=== PATIENT | female | born 1965 | race Caucasian/White ===

== ENCOUNTER 2017-08-27 12:21 | Emergency (ER) | payer BC ==
[~2017-08-27] VITALS: Ht 170.2 cm; Wt 112.6 kg
[~2017-08-27 12:21] MED LIST: ALPR-429 PO; CALC500T5 PO; IMAT400T2 PO; IMAT400T5 PO; LOR75 PO; MULT1TAB64 PO; ONDA-2 PO; OXYC-865 PO; OXYC10TA67 PO; OXYC5TAB38 PO; OXYIR PO; SULF-198 PO; TAMS0.4C70 PO
--- NOTE | 2017-08-27 12:31 | ER Report ---
History and Physical Time Seen By MD: 12:30 Hx. of Stated Complaint: LEFT KNEE LACERATION HPI/ROS CHIEF COMPLAINT: Left knee injury HISTORY OF PRESENT ILLNESS: This is a 51-year-old female who presents to the emergency department for a left knee injury. Patient states that she stepped off a sidewalk at her house and slipped landing on her left knee on a rock injuring her left knee. Patient has a large laceration and open wound to the left knee. Bleeding is controlled. No obvious deformities. Patient has some pain to the lateral knee and proximal tibia. Patient also has some bruising to the anterior surface of the right lower leg, no obvious deformities. Patient also has some discomfort to her ribs underneath her left breast, no chest pain or shortness of breath and no pinpoint pain with firm pressure. Patient states she thinks that she just reached when she was trying to break her fall and stretch the muscle underneath her left breast. Patient also states that she has some pain to her left palm where she broke her fall, no obvious deformities or lacerations or abrasions. Patient denies hitting her head. Patient denies nausea , vomiting, diarrhea, aches, chills or recent fevers. REVIEW OF SYSTEMS: Constitutional: No fever, no chills. Eyes: No discharge. ENT: No sore throat. Cardiovascular: No chest pain, no palpitations. Respiratory: No cough, no shortness of breath. Gastrointestinal: No abdominal pain, no vomiting. Genitourinary: No hematuria. Musculoskeletal: As above. Skin: As above. Neurological: No headache. Allergies: Coded Allergies: Penicillins (Verified Allergy, Unknown, 08/27/17) Home Meds Active Scripts Cephalexin 500 Mg Tab (KEFLEX 500 MG TAB) 500 Mg Tablet, 500 MG PO Q6H for 7 Days, #28 TAB Prov:PERLITA MARTINEZ YARN DUMPER-BC 08/27/17 Alprazolam (XANAX) 0.5 Mg Tablet, 1 TAB PO TID Y for ANXIETY, #30 TAB Prov:EDITH CAMPOS YARN DUMPER-BC, ONC 04/19/17 Imatinib Mesylate (Imatinib Mesylate) 400 Mg Tablet, 400 MG PO DAILY, #90 TAB Prov:EDITH CAMPOS YARN DUMPER-BC, ONC 07/21/16 Reported Medications Multivitamin (MULTI VITAMIN DAILY) 1 Each Tablet, 1 EACH PO QDAY 10/11/12 Discontinued Scripts Tamsulosin Hcl (TAMSULOSIN HCL) 0.4 Mg Cap.er.24h, 0.4 MG PO QHS for 3 Days, #3 CAP 0 Refills Prov:LEA ENRIQUEZ MD 05/12/17 Ondansetron Hcl (ONDANSETRON HCL) 4 Mg Tablet, 4 MG PO Q8H for Nausea, #15 TAB 0 Refills Prov:LEA ENRIQUEZ MD 05/12/17 Past Medical/Surgical History Patient has a past medical and surgical history of A. fib, wears glasses, anxiety, leukemia, left ankle fracture with surgery. Reviewed Nurses Notes: Yes Hx Smoking: No Smoking Status: Never Smoker Exposure to Second Hand Smoke?: No Hx Substance Use Disorder: No Hx Alcohol Use: No Constitutional Vital Sign - Last 24 Hours 08/27/17 08/27/17 12:25 15:08 Temp 97.7 Pulse 74 73 Resp 16 B/P (MAP) 125/82 142/87 (105) Pulse Ox 96 94 O2 Delivery Room Air Room Air Physical Exam General Appearance: The patient is alert, has no immediate need for airway protection and no signs of toxicity, anxious. Eyes: Pupils equal and round no pallor or injection. ENT, Mouth: Mucous membranes are moist. Respiratory: There are no retractions, lungs are clear to auscultation. Cardiovascular: Regular rate and rhythm, no murmurs, clicks or rubs. Gastrointestinal: Abdomen is soft and non tender, no masses, bowel sounds normal. Neurological: Alert and oriented 4. Moving all extremities. Following all commands. No focal neuro deficits. Skin: Warm and dry, no rashes. Musculoskeletal: Neck is supple non tender. Denies C-spine tenderness. Extremities 6 cm jagged, 90deg. laceration, with visible bony structures noted, no visible damage to underlying structures. No visible tendon damage. Flexion of knee against gravity. Contusion to the left lateral knee. Contusion to right anterior lower extremity. Contusion to left palm. Examination of the Left hand reveals no acute deformity. The patient is able to give a thumbs up sign, is able to make an okay sign, and is able to AB duct the fingers. Sensation is intact over the dorsal 1st web space, the volar aspect of the 2nd finger, and the volar aspect of the 5th finger. Capillary refill is brisk. DIFFERENTIAL DIAGNOSIS: After history and physical exam differential diagnosis was considered for patellar fracture, patellar tendon rupture, tibial plateau fracture, contusion, laceration. Medical Decision Making EKG/Imaging Imaging PATIENT NAME: Tori Avina : 1965 MR: [id number] V: [id number] EXAM DATE: ORDERING PHYSICIAN: PERLITA MARTINEZ TECHNOLOGIST: Location: [facility] - [place] Patient: Tori Avina : 1965 Visit/Account:[id number] Date of Sevice: 08/27/2017 INDICATION: fall, knee pain. DATE: 08/27/2017 1:40 PM. TECHNIQUE: KNEE 4 VIEW LEFT COMPARISON: None FINDINGS: A laceration in the prepatellar region is large. There may be some debris within the wound. No underlying osseous abnormality. Patellar alignment remains normal. No knee joint effusion. IMPRESSION: Prepatellar laceration with possible debris in the wound but no radiographic evidence of intra-articular extension and no acute osseous abnormality. Report Dictated By: Deepak Rodrigues MD at 08/27/2017 1:40 PM Report E-Signed By: Deepak Rodrigues MD at 08/27/2017 1:41 PM WSN:[id number] ED Course/Re-evaluation ED Course The patient was admitted to room. A history and physical were obtained. Differential diagnoses were considered. A 4 view x-ray of the left knee was obtained, which revealed no acute osseous abnormalities. The patient's wound was anesthetized with 1% lidocaine with epinephrine and 0.5% bupivacaine. I did review these x-ray results with the patient and her . The wound was thoroughly cleansed and scrubbed with 1 L of normal saline and sure cleanse. The complex wound was repaired as noted below. The patient's wound was dressed with a nonadhesive dressing and then secured with an Matt wrap. The patient's tetanus was updated. Given 1 g of Rocephin IM in the emergency department. Patient was also started on a course of Keflex. The patient was instructed to follow-up with her primary care provider in 10-14 days for suture removal. She was also encouraged to follow up with her primary care provider sooner if she were to develop signs of infection or return to the emergency department for any other concerns or worsening symptoms. Patient had no other questions or concerns and was discharged home. Procedure: Laceration repair. Verbal consent was obtained from the patient. The jagged, 90 degree 6 cm laceration on the right knee was anesthetized in the usual fashion. The wound was scrubbed, draped and explored to its base with a gloved finger, no foreign body noted by bloodless wound base examination. There were no deep structures involved. No tendon injury was identified. The wound was repaired with 3-5-0 Vicryl internal simple interrupted sutures and 15, 5-0 Ethilon external simple interrupted sutures. The wound repair was complex and bilayered. The procedure was performed by myself. Decision to Disposition Date: Aug 27, 2017 Decision to Disposition Time: 15:14 Depart Departure Latest Vital Signs Vital Signs Date Time Temp Pulse Resp B/P (MAP) Pulse Ox O2 Delivery O2 Flow Rate FiO2 08/27/17 15:08 73 142/87 (105) 94 Room Air 08/27/17 12:25 97.7 16 Impression: Primary Impression: Laceration of knee, left, complicated Additional Impression: Contusion Condition: Improved Disposition: HOME OR SELF-CARE Referrals: SHEBA NICOLE MD New Scripts Cephalexin 500 Mg Tab (KEFLEX 500 MG TAB) 500 Mg Tablet 500 MG PO Q6H for 7 Days, #28 TAB Prov: PERLITA MARTINEZ L YARN DUMPER-BC 08/27/17 Departure Forms: ER Transition Record, Medications Reconciliation, Patient Portal Information Patient Instructions: Contusion in Adults (ED), Laceration (ED) Additional Instructions: Drink plenty of fluids. Get plenty of rest. Take Ibuprofen or Tylenol as needed for pain. Take antibiotics as indicated. Take regular medications. Monitor knee for signs of infection. Follow up with Dr. Nicole in 10-14 days for suture removal. May return to the ED for worsening symptoms. Problem Qualifiers Primary Impression: Laceration of knee, left, complicated Encounter type: initial encounter Qualified Codes: S81.012A - Laceration without foreign body, left knee, initial encounter Additional Impression: Contusion Encounter type: initial encounter Contusion area: knee Laterality: left Qualified Codes: S80.02XA - Contusion of left knee, initial encounter PERLITA MARTINEZ YARN DUMPER-BC Aug 27, 2017 12:30
[2017-08-27] MEDS ORDERED: LIDOCAINE 1% MDV 200 MG/20 ML INJ ONE (12:55)
[2017-08-27] MEDS ORDERED: cefTRIAXone 1 GM VIAL IM ONE (12:55)
[2017-08-27] MEDS ORDERED: DIPHTH/TETANUS/ACEL. PERTUSSIS IM ONLY ONE (13:00)
--- NOTE | 2017-08-27 13:45 | RADIOLOGY IMAGING REPORT ---
FACILITY: [facility] - [place] PATIENT NAME: Tori Avina : 1965 MR: [id number] V: [id number] EXAM DATE: ORDERING PHYSICIAN: PERLITA MARTINEZ TECHNOLOGIST: Location: [facility] - [place] Patient: Tori Avina : 1965 Visit/Account:[id number] Date of Sevice: 08/27/2017 INDICATION: fall, knee pain. DATE: 08/27/2017 1:40 PM. TECHNIQUE: KNEE 4 VIEW LEFT COMPARISON: None FINDINGS: A laceration in the prepatellar region is large. There may be some debris within the wound. No underlying osseous abnormality. Patellar alignment remains normal. No knee joint effusion. IMPRESSION: Prepatellar laceration with possible debris in the wound but no radiographic evidence of intra-articu lar extension and no acute osseous abnormality. Report Dictated By: Deepak Rodrigues MD at 08/27/2017 1:40 PM Report E-Signed By: Deepak Rodrigues MD at 08/27/2017 1:41 PM WSN:[id number]
[2017-08-27 15:08] VITALS: BP 142/87
[2017-08-27] MEDS ORDERED: CEPH500T7 PO (15:19)
== END 2017-08-27 15:35 | disposition home or self-care (01) ==
LOC: ER 12:41
DX: S81.012A Laceration without foreign body, left knee, initial encounter (principal); S80.02XA Contusion of left knee, initial encounter; W01.0XXA Fall on same level from slipping, tripping and stumbling without subsequent striking against object, initial encounter
CPT/HCPCS: 12032; 73564; 90471; 90715; 96372; 99283; J0696; J2001

== ENCOUNTER 2017-08-31 09:28 | Emergency (ER) | payer BC ==
[~2017-08-31] VITALS: Ht 170.2 cm; Wt 112.6 kg
[~2017-08-31 09:28] MED LIST changes: +CEPH500T7 PO
--- NOTE | 2017-08-31 09:33 | ER Report ---
History and Physical Time Seen By MD: 09:33 HPI/ROS CHIEF COMPLAINT: Right left-sided chest pain and "bubbling" HISTORY OF PRESENT ILLNESS: Patient is a 51-year-old female who fell a few days ago was seen in the emergency department on August 27 for left knee laceration repair which appears to be healing well. She states last evening she was having severe left-sided chest wall pain. Further she noted some bubbling sounds coming from just below the left lower rib margin. Patient became anxious but did not come to the emergency department at the onset. Pain is improved but she still feels the discomfort in that area. He is had no further falls she denies fevers or chills she denies any productive cough or sputum. REVIEW OF SYSTEMS: Constitutional: No fever, no chills. Eyes: No discharge. ENT: No sore throat. Cardiovascular: No chest pain, occasional palpitations Respiratory: No cough, no shortness of breath. Gastrointestinal: No abdominal pain, no vomiting. Genitourinary: No hematuria. Musculoskeletal: No back pain. Left anterior chest wall pain Skin: No rashes. Neurological: No headache. Allergies: Coded Allergies: Penicillins (Verified Allergy, Unknown, 08/27/17) Home Meds Active Scripts Hydrocodone Bit/Acetaminophen (HYDROCODON-ACETAMINOPHEN 5-325) 1 Each Tablet, 1 EACH PO Q4-6H Y for PAIN, #12 TAB 0 Refills TAKE ONE TABLET BY MOUTH EVERY 4-6 HOURS NEEDED FOR PAIN Prov:LEA ENRIQUEZ MD 08/31/17 Cephalexin 500 Mg Tab (KEFLEX 500 MG TAB) 500 Mg Tablet, 500 MG PO Q6H for 7 Days, #28 TAB Prov:PERLITA MARTINEZ DAYCARE MANAGER-BC 08/27/17 Alprazolam (XANAX) 0.5 Mg Tablet, 1 TAB PO TID Y for ANXIETY, #30 TAB Prov:EDITH CAMPOS DAYCARE MANAGER-BC, ONC 04/19/17 Imatinib Mesylate (Imatinib Mesylate) 400 Mg Tablet, 400 MG PO DAILY, #90 TAB Prov:EDITH CAMPOS DAYCARE MANAGER-BC, ONC 07/21/16 Reported Medications Multivitamin (MULTI VITAMIN DAILY) 1 Each Tablet, 1 EACH PO QDAY 10/11/12 Discontinued Scripts Tamsulosin Hcl (TAMSULOSIN HCL) 0.4 Mg Cap.er.24h, 0.4 MG PO QHS for 3 Days, #3 CAP 0 Refills Prov:LEA ENRIQUEZ MD 05/12/17 Ondansetron Hcl (ONDANSETRON HCL) 4 Mg Tablet, 4 MG PO Q8H for Nausea, #15 TAB 0 Refills Prov:LEA ENRIQUEZ MD 05/12/17 Past Medical/Surgical History Medical history significant for chronic myelogenous leukemia diagnosed in 2009 currently on chemotherapy Hx Smoking: No Smoking Status: Never Smoker Exposure to Second Hand Smoke?: No Hx Substance Use Disorder: No Hx Alcohol Use: No Constitutional Vital Sign - Last 24 Hours 08/31/17 08/31/17 08/31/17 08/31/17 09:31 09:31 10:00 10:30 Temp 98.3 Pulse 90 82 Resp 18 B/P (MAP) 120/65 (83) 120/65 125/82 (96) 127/68 (87) Pulse Ox 91 94 O2 Delivery Room Air 08/31/17 10:58 B/P (MAP) 132/85 (101) Physical Exam General Appearance: The patient is alert, has no immediate need for airway protection and no signs of toxicity. Eyes: Pupils equal and round no pallor or injection. ENT, Mouth: Mucous membranes are moist. Respiratory: There are no retractions, lungs are clear to auscultation. Cardiovascular: Regular rate and rhythm. Gastrointestinal: Abdomen is soft and non tender, no masses, bowel sounds normal. Neurological: Alert, nontoxic Skin: Warm and dry, no rashes. Musculoskeletal: Neck is supple non tender. Extremities are nontender, nonswollen and have full range of motion. Medical Decision Making EKG/Imaging EKG Interpretation EKG shows normal sinus rhythm with ventricular rate of 83 bpm occasional PVCs Monitor Interpretation: Normal Sinus Rhythm Imaging FACILITY: [facility] - [place] PATIENT NAME: Tori Avina : 1965 MR: [id number] V: [id number] EXAM DATE: ORDERING PHYSICIAN: LEA ENRIQUEZ TECHNOLOGIST: Location: [facility] Patient: Tori Avina : 1965 Visit/Account:[id number] Date of Sevice: 08/31/2017 Exam type: RIBS LEFT two views History: Fall on ice Comparison: Chest PA and lateral October 19, 2016 Findings: No definite left-sided rib fracture is seen. There is mild blunting of the left costophrenic angle not present on the prior study worrisome for small left pleural effusion. There is also a band of atelectasis in the left lower lobe new since the prior examination. IMPRESSION: 1. No definite left-sided rib fracture identified. There is mild blunting left costophrenic angle worrisome for small left pleural effusion and small amount left basilar atelectasis Report Dictated By: Ese Mccurdy MD at 08/31/2017 10:17 AM Report E-Signed By: Ese Mccurdy MD at 08/31/2017 10:32 AM WSN:[email or web address] FACILITY: [facility] - [place] PATIENT NAME: Tori Avina : 1965 MR: [id number] V: [id number] EXAM DATE: ORDERING PHYSICIAN: LEA ENRIQUEZ TECHNOLOGIST: Location: [facility] Patient: Tori Avina : 1965 Visit/Account:[id number] Date of Sevice: 08/31/2017 Exam type: CHEST PA AND LAT History: Fall on ice Comparison: October 19, 2016. Findings: There is mild blunting left costophrenic angle not present on the prior study worrisome first small left pleural effusion. There is also linear band of atelectasis in the left lung base. There is no evidence of pneumothorax or pneumomediastinum. The right lung is well aerated.. IMPRESSION: 1. Small amount left basilar atelectasis and mild blunting left costophrenic angle worrisome for small left pleural effusion Report Dictated By: Ese Mccurdy MD at 08/31/2017 10:32 AM Report E-Signed By: Ese Mccurdy MD at 08/31/2017 10:34 AM WSN:[email or web address] ED Course/Re-evaluation ED Course 08/31/2017 9:51:02 am plan at this time will be to obtain an EKG and we will obtain left lateral rib x-rays. Suspect that the patient's bubbling sound that she heard is more likely field representative GI origin in that it is probably borborygmi. We will obtain x-ray and EKG as previously stated disposition pending studies. Decision to Disposition Date: Aug 31, 2017 Decision to Disposition Time: 10:49 Depart Departure Latest Vital Signs Vital Signs Date Time Temp Pulse Resp B/P (MAP) Pulse Ox O2 Delivery O2 Flow Rate FiO2 08/31/17 10:58 132/85 (101) 08/31/17 10:30 82 94 08/31/17 09:31 98.3 18 Room Air Impression: Primary Impression: Left pulmonary contusion Condition: Improved Disposition: HOME OR SELF-CARE New Scripts Hydrocodone Bit/Acetaminophen (HYDROCODON-ACETAMINOPHEN 5-325) 1 Each Tablet 1 EACH PO Q4-6H Y for PAIN, #12 TAB 0 Refills TAKE ONE TABLET BY MOUTH EVERY 4-6 HOURS NEEDED FOR PAIN Prov: LEA ENRIQUEZ MD 08/31/17 Patient Instructions: Pulmonary Contusion (ED) Additional Instructions: Use her incentive spirometer as directed cold should be approximately 10 puffs 3 -4 times per day Problem Qualifiers Primary Impression: Left pulmonary contusion Encounter type: initial encounter Qualified Codes: S27.321A - Contusion of lung, unilateral, initial encounter LEA ENRIQUEZ MD Aug 31, 2017 09:33
[2017-08-31] MEDS ORDERED: NS(*) 0.9% 1000 ML BAG 1,000 ML IV ONE (09:40)
--- NOTE | 2017-08-31 09:50 | EKG ---
FACILITY: [facility] - [place] PATIENT NAME: SARINA STRATTON : [id number] MR: [id number] V: [id number] EXAM DATE: ORDERING PHYSICIAN: LEA ENRIQUEZ TECHNOLOGIST: MANNY Garcia Reason : CHEST DISCOMFORT Blood Pressure : / mmHG Vent. Rate : 083 BPM Atrial Rate : 083 BPM P-R Int : 172 ms QRS Dur : 114 ms QT Int : 416 ms P-R-T Axes : 062 050 100 degrees QTc Int : 488 ms Sinus rhythm with occasional premature ventricular complexes Cannot rule out Anterior infarct , age undetermined Incomplete left bundle branch block Abnormal ECG When compared with ECG of 19-OCT-2016 10:03, Questionable change in QRS axis Confirmed by SHEBA BOONE ([id number]) on 09/02/2017 8:53:34 AM Referred By: MINA Confirmed By:SHEBA BOONE
--- NOTE | 2017-08-31 10:36 | RADIOLOGY IMAGING REPORT ---
FACILITY: [facility] PATIENT NAME: Tori Avina : 1965 MR: [id number] V: [id number] EXAM DATE: ORDERING PHYSICIAN: LEA ENRIQUEZ TECHNOLOGIST: Location: [facility] [place] Patient: Tori Avina : 1965 Visit/Account:[id number] Date of Sevice: 08/31/2017 Exam type: RIBS LEFT two views History: Fall on ice Comparison: Chest PA and lateral October 19, 2016 Findings: No definite left-sided rib fracture is seen. There is mild blunting of the left costophrenic angle n ot present on the prior study worrisome for small left pleural effusion. There is also a band of ate lectasis in the left lower lobe new since the prior examination. IMPRESSION: 1. No definite left-sided rib fracture identified. There is mild blunting left costophrenic angle worrisome for small left pleural effusion and small am ount left basilar atelectasis Report Dictated By: Ese Mccurdy MD at 08/31/2017 10:17 AM Report E-Signed By: Ese Mccurdy MD at 08/31/2017 10:32 AM WSN:[id number]
--- NOTE | 2017-08-31 10:38 | RADIOLOGY IMAGING REPORT ---
FACILITY: [facility] PATIENT NAME: Tori Avina : 1965 MR: [id number] V: [id number] EXAM DATE: ORDERING PHYSICIAN: LEA ENRIQUEZ TECHNOLOGIST: Location: [facility] [place] Patient: Tori Avina : 1965 Visit/Account:[id number] Date of Sevice: 08/31/2017 Exam type: CHEST PA AND LAT History: Fall on ice Comparison: October 19, 2016. Findings: There is mild blunting left costophrenic angle not present on the prior study worrisome first small l eft pleural effusion. There is also linear band of atelectasis in the left lung base. There is no e vidence of pneumothorax or pneumomediastinum. The right lung is well aerated.. IMPRESSION: 1. Small amount left basilar atelectasis and mild blunting left costophrenic angle worrisome for sma ll left pleural effusion Report Dictated By: Ese Mccurdy MD at 08/31/2017 10:32 AM Report E-Signed By: Ese Mccurdy MD at 08/31/2017 10:34 AM WSN:[email or web address]
[2017-08-31] MEDS ORDERED: LOR5/325 PO (10:52)
[2017-08-31 10:58] VITALS: BP 132/85
== END 2017-08-31 11:05 | disposition home or self-care (01) ==
LOC: ER 09:28
DX: S27.321A Contusion of lung, unilateral, initial encounter (principal)
CPT/HCPCS: 71046; 71100; 93005; 99283

== ENCOUNTER 2017-10-18 13:57 | Outpatient (RCR) | payer BC ==
[2017-10-04 11:30] VITALS: BP 134/91
[2017-10-04 11:39] LABS: PLATELET COUNT, AUTOMATED 245 K/uL (150-450)
[~2017-10-18 13:57] MED LIST changes: +LOR5/325 PO
[2017-10-18 14:01] VITALS: BP 137/82
--- NOTE | 2017-10-18 18:47 | ONCOLOGY FOLLOW UP NOTE ---
EVENT DATE: October 18, 2017 DIAGNOSES 1. Chronic myelogenous leukemia on Gleevec therapy since November 2009. 2. Palpitation of the heart. CHIEF COMPLAINT The patient is here today for followup of her CML on Gleevec. HEMATOLOGY HISTORY The patient is a 51-year-old woman who presented with arthralgias of her hands. During her evaluation a CBC was done on October 07, 2009 which revealed a white count of 20,100, hemoglobin 13.6 and platelets of 691,000. There was basophilia with absolute basophil count of 1000. Flow cytometry showed left shifted myeloid maturation consistent with CML. BCR-ABL rearrangement by PCR was positive. JAK2 mutation analysis was negative. Bone marrow aspiration biopsy done on November 04, 2009 was consistent with CML. The patient started treatment with Gleevec November 2009. She achieved complete molecular remission by quantitative PCR for BCR-ABL transcript done on May 11, 2010. HISTORY OF PRESENT ILLNESS Patient is here today of followup of CML on Gleevec therapy in complete molecular remission. She is doing fine currently except she has some mild night sweats sometimes. She has also shortness of breath. She has occasional diarrhea. She has bone aches and she is weak, tired and fatigued. PAST MEDICAL HISTORY CML diagnosed November 2009. PAST SURGICAL HISTORY done in July 1993. SOCIAL HISTORY The patient is . She has three sons. She is a homemaker. No significant tobacco, alcohol or illicit drug abuse. FAMILY HISTORY Mother had uterine cancer at the age of seventy-four. Maternal grandmother with ovarian cancer at the age of seventy-four. Maternal aunt and maternal cousin with breast cancer. Paternal grandmother with skin cancer. CURRENT MEDICATIONS 1. Gleevec 400 mg daily. 2. Tylenol p.r.n. 3. Xanax 0.5 mg three times daily p.r.n. for anxiety. ALLERGIES PENICILLIN WHICH CAUSES SKIN RASH. REVIEW OF SYSTEMS CONSTITUTIONAL: No appetite or weight change. No fever, chills. She has mild night sweats. No recent infection. HEENT: Ears: No tinnitus or hearing problem. Nose: No nasal discharge or epistaxis. Throat: No sore throat or mouth ulcers. Eyes: No diplopia or visual changes. RESPIRATORY: The patient has exertional shortness of breath. CARDIOVASCULAR: She has palpitations. She was in the ER today. She had the palpitations two years ago, but it is recurrent currently. GASTROINTESTINAL: She has occasional diarrhea. No nausea or vomiting. No constipation. No change in bowel movements. No heartburn or swallowing difficulties. No abdominal pain. No jaundice. No hematemesis, melena or rectal bleeding. GENITOURINARY: No hematuria or dysuria. MUSCULOSKELETAL: She has bone aches. No pain in the hips and lower back. NEUROLOGICAL: She has tingling and numbness in the feet. HEMATOLOGIC/LYMPHATIC: She bruises easily. She is weak, tired and fatigued. SKIN: No skin rash or lumps. PSYCHIATRIC: No anxiety or depression. PHYSICAL EXAMINATION GENERAL: Looks stable. Well-developed, well-nourished, and in no acute distress. VITAL SIGNS: Blood pressure 137/82, pulse 79 per minute, respirations 16 per minute, temperature 97, pulse ox 92% on room air. HEENT: Head: Atraumatic. No sinus tenderness to palpation. Eyes: No icterus or conjunctivitis. Mouth and throat: No oral thrush or mucositis. NECK: Supple. No cervical or supraclavicular lymphadenopathy. LUNGS: Clear to auscultation and percussion bilaterally. HEART: Regular rate and rhythm. No gallops, murmurs, clicks or rubs. ABDOMEN: Soft and lax. No tenderness. No hepatosplenomegaly. No masses. EXTREMITIES: No cyanosis, clubbing or edema. LYMPHATICS: No peripheral lymphadenopathy. NEUROLOGICAL: Conscious, alert and oriented times three. No focal motor or sensory deficits. PSYCHIATRIC: Mood and affect appear normal. SKIN: No skin rash, bruise or purpuric eruption. DIAGNOSTIC DATA CBC showed white count 8.8, hemoglobin 14.1, hematocrit 41.4, platelets 245, 000. Chem panel is totally normal. Quantitative PCR for BCR/ABL transcript came back negative. ASSESSMENT 1. Chronic myelogenous leukemia in chronic phase, currently on Gleevec 400 mg started November 2009 with complete molecular remission achieved May 2010. Her current quantitative PCR for BCR/ABL transcript is not detected. I am planning to continue leaving it at the same dose. I will see her again in four months with CBC, chem panel, and quantitative PCR for BCR/ABL transcript. 2. Anxiety with palpitations. Continue Xanax 0.5 mg t.i.d. p.r.n. PLAN 1. Continue Gleevec 400 mg daily. 2. Xanax 0.5 mg t.i.d. p.r.n. for anxiety. 3. Patient to return in 4 months with CBC, chem panel and quantitative PCR for BCR/ABL. 4. Patient is to contact us for any new concern or complaints. MTDD
== END 2017-11-02 14:24 | disposition home or self-care (01) ==
LOC: ONC 13:57
PROVIDERS: ATTEND Internal Medicine Hematology
DX: C92.10 Chronic myeloid leukemia, BCR/ABL-positive, not having achieved remission (principal)
CPT/HCPCS: 36415; 81206; 81207; 82040; 82247; 82310; 82374; 82435; 82565; 82947; 84075; 84132; 84155; 84295; 84450; 84460; 84520; 85025

== ENCOUNTER 2018-02-21 13:53 | Outpatient (RCR) | payer BC ==
[2018-02-11 11:02] LABS: PLATELET COUNT, AUTOMATED 248 K/uL (150-450)
[2018-02-21 13:59] VITALS: BP 133/79
--- NOTE | 2018-02-21 19:37 | ONCOLOGY FOLLOW UP NOTE ---
EVENT DATE: February 21, 2018 DIAGNOSES 1. Chronic myelogenous leukemia on Gleevec therapy since November 2009. 2. Palpitation of the heart. CHIEF COMPLAINT The patient is here today for followup of her CML on Gleevec. HEMATOLOGY HISTORY The patient is a 52-year-old woman who presented with arthralgias of her hands. During her evaluation a CBC was done on October 07, 2009 which revealed a white count of 20,100, hemoglobin 13.6 and platelets of 691,000. There was basophilia with absolute basophil count of 1000. Flow cytometry showed left shifted myeloid maturation consistent with CML. BCR-ABL rearrangement by PCR was positive. JAK2 mutation analysis was negative. Bone marrow aspiration biopsy done on November 04, 2009 was consistent with CML. The patient started treatment with Gleevec November 2009. She achieved complete molecular remission by quantitative PCR for BCR-ABL transcript done on May 11, 2010. HISTORY OF PRESENT ILLNESS Patient is here today of followup of CML on Gleevec. She is doing fine currently. She has some dry cough and shortness of breath. She has some muscle pain. She has tingling and numbness in the feet occasionally. She is weak, tired and fatigued. PAST MEDICAL HISTORY CML diagnosed November 2009. PAST SURGICAL HISTORY done in July 1993. SOCIAL HISTORY The patient is . She has three sons. She is a homemaker. No significant tobacco, alcohol or illicit drug abuse. FAMILY HISTORY Mother had uterine cancer at the age of seventy-four. Maternal grandmother with ovarian cancer at the age of seventy-four. Maternal aunt and maternal cousin with breast cancer. Paternal grandmother with skin cancer. CURRENT MEDICATIONS 1. Gleevec 400 mg daily. 2. Tylenol p.r.n. 3. Xanax 0.5 mg three times daily p.r.n. for anxiety. ALLERGIES PENICILLIN WHICH CAUSES SKIN RASH. REVIEW OF SYSTEMS CONSTITUTIONAL: No appetite or weight change. No fever, chills. She has mild night sweats. No recent infection. HEENT: Ears: No tinnitus or hearing problem. Nose: No nasal discharge or epistaxis. Throat: No sore throat or mouth ulcers. Eyes: No diplopia or visual changes. RESPIRATORY: The patient has some cough and shortness of breath. CARDIOVASCULAR: She has palpitations. She was in the ER today. She had the palpitations two years ago, but it is recurrent currently. GASTROINTESTINAL: She has occasional diarrhea. No nausea or vomiting. No constipation. No change in bowel movements. No heartburn or swallowing difficulties. No abdominal pain. No jaundice. No hematemesis, melena or rectal bleeding. GENITOURINARY: No hematuria or dysuria. MUSCULOSKELETAL: She has occasional muscle pain. NEUROLOGICAL: She has occasional neuropathy in her feet. HEMATOLOGIC/LYMPHATIC: She is weak, tired and fatigued. SKIN: No skin rash or lumps. PSYCHIATRIC: No anxiety or depression. PHYSICAL EXAMINATION GENERAL: Looks stable. Well-developed, well-nourished, and in no acute distress. VITAL SIGNS: Blood pressure 133/79, pulse 82 per minute, respirations 18 per minute, temperature 98.4, pulse ox 93% on room air. HEENT: Head: Atraumatic. No sinus tenderness to palpation. Eyes: No icterus or conjunctivitis. Mouth and throat: No oral thrush or mucositis. NECK: Supple. No cervical or supraclavicular lymphadenopathy. LUNGS: Clear to auscultation and percussion bilaterally. HEART: Regular rate and rhythm. No gallops, murmurs, clicks or rubs. ABDOMEN: Soft and lax. No tenderness. No hepatosplenomegaly. No masses. EXTREMITIES: No cyanosis, clubbing or edema. LYMPHATICS: No peripheral lymphadenopathy. NEUROLOGICAL: Conscious, alert and oriented times three. No focal motor or sensory deficits. PSYCHIATRIC: Mood and affect appear normal. SKIN: No skin rash, bruise or purpuric eruption. DIAGNOSTIC DATA CBC showed white count 8.1, hemoglobin 14, hematocrit 41.4, platelets 248,000. Chem panel is totally normal except blood sugar 144 and potassium 3.4. Quantitative PCR for BCR/ABL rearrangement came back negative. ASSESSMENT 1. Chronic myelogenous leukemia in chronic phase, currently on Gleevec 400 mg started November 2009 with complete molecular remission achieved May 2010. Her current quantitative PCR for BCR/ABL transcript is negative. I am planning to continue Gleevec at the same dose. I will see her again in six months with CBC, chem panel, and quantitative PCR for BCR/ABL transcript. 2. Anxiety with palpitations. Continue Xanax 0.5 mg t.i.d. p.r.n. PLAN 1. Continue Gleevec 400 mg daily. 2. Continue Xanax 0.5 mg t.i.d. p.r.n. for anxiety. 3. Patient to return in six months with CBC, chem panel and quantitative PCR for BCR/ABL transcript. 4. Patient is to contact us for any new concern or complaints. MTDD
== END 2018-03-01 09:52 | disposition home or self-care (01) ==
LOC: ONC 13:53
PROVIDERS: ATTEND Internal Medicine Hematology
DX: C92.10 Chronic myeloid leukemia, BCR/ABL-positive, not having achieved remission (principal); R05 Cough; R06.02 Shortness of breath; R53.83 Other fatigue; F41.9 Anxiety disorder, unspecified
CPT/HCPCS: 36415; 81207; 82040; 82247; 82310; 82374; 82435; 82565; 82947; 84075; 84132; 84155; 84295; 84450; 84460; 84520; 85025; 99212

== ENCOUNTER 2018-08-09 13:47 | Outpatient (RCR) | payer BC | END 2018-08-12 13:28 | disposition home or self-care (01) | LOC: ONC 13:47 | PROVIDERS: ATTEND Internal Medicine Hematology | DX: C92.10 Chronic myeloid leukemia, BCR/ABL-positive, not having achieved remission (principal); R05 Cough; R06.02 Shortness of breath; R53.83 Other fatigue; F41.9 Anxiety disorder, unspecified ==

== ENCOUNTER 2018-08-29 15:30 | Outpatient (RCR) | payer BC ==
[2018-08-19 11:27] VITALS: BP 121/89
[2018-08-19 11:53] LABS: PLATELET COUNT, AUTOMATED 309 K/uL (150-450)
[2018-08-29 15:37] VITALS: BP 140/88
--- NOTE | 2018-08-29 20:18 | [facility] ONCOLOGY NOTE ---
EVENT DATE: August 29, 2018 DIAGNOSES 1. Chronic myelogenous leukemia, on Gleevec therapy since November 2009. 2. Palpitation of the heart. CHIEF COMPLAINT The patient is here today for followup of her CML on Gleevec. HEMATOLOGY HISTORY The patient is a 52-year-old woman who presented with arthralgias of her hands. During her evaluation, a CBC was done on October 07, 2009, which revealed a white count of 20,100, hemoglobin 13.6, and platelets of 691,000. There was basophilia with absolute basophil count of 1000. Flow cytometry showed left shifted myeloid maturation consistent with CML. BCR-ABL rearrangement by PCR was positive. JAK2 mutation analysis was negative. Bone marrow aspiration biopsy done on November 04, 2009, was consistent with CML. The patient started treatment with Gleevec November 2009. She achieved complete molecular remission by quantitative PCR for BCR-ABL transcript done on May 11, 2010. HISTORY OF PRESENT ILLNESS Patient is here today of followup of her CML on Gleevec. She is doing fine currently. She caught cold lately, but she is recovering from that. She has exertional shortness of breath. She has muscle aches sometimes. She has recent headache, usually on the right side of her head. She is weak, tired, and fatigued. PAST MEDICAL HISTORY CML diagnosed November 2009. PAST SURGICAL HISTORY done in July 1993. SOCIAL HISTORY The patient is . She has three sons. She is a homemaker. No significant tobacco, alcohol, or illicit drug abuse. FAMILY HISTORY Mother had uterine cancer at the age of 74. Maternal grandmother with ovarian cancer at the age of 74. Maternal aunt and maternal cousin with breast cancer. Paternal grandmother with skin cancer. CURRENT MEDICATIONS 1. Gleevec 400 mg daily. 2. Tylenol p.r.n. 3. Xanax 0.5 mg three times daily p.r.n. for anxiety. ALLERGIES PENICILLIN which causes skin rash. REVIEW OF SYSTEMS CONSTITUTIONAL: No appetite or weight change. No fever, chills, or sweating. No recent infection. HEENT: Ears: No tinnitus or hearing problem. Nose: No nasal discharge or epistaxis. Throat: No sore throat or mouth ulcers. Eyes: No diplopia or visual changes. RESPIRATORY: Patient has exertional shortness of breath. No cough, expectoration, or hemoptysis. CARDIOVASCULAR: No chest pain, orthopnea, or paroxysmal nocturnal dyspnea (PND). No edema. No palpitations. GASTROINTESTINAL: No nausea or vomiting. No diarrhea or constipation. No change in bowel movements. No heartburn or swallowing difficulties. No abdominal pain. No jaundice. No hematemesis, melena, or rectal bleeding. GENITOURINARY: No hematuria or dysuria. MUSCULOSKELETAL: She has muscle aches occasionally. NEUROLOGICAL: No tingling or numbness in the hands or feet. She has occasional headache lately. No convulsions. HEMATOLOGIC/LYMPHATIC: No bleeding or easy bruising. She is weak, tired, and fatigued. No enlarged lymph nodes. SKIN: No skin rash or lumps. PSYCHIATRIC: No anxiety or depression. PHYSICAL EXAMINATION GENERAL: Looks stable. Well developed, well nourished, and in no acute distress. VITAL SIGNS: Blood pressure 140/88, pulse 86 per minute, respirations 16 per minute, temperature 97.6, pulse ox 96% on room air. HEENT: Head: Atraumatic. No sinus tenderness to palpation. Eyes: No icterus or conjunctivitis. Mouth and throat: No oral thrush or mucositis. NECK: Supple. No cervical or supraclavicular lymphadenopathy. LUNGS: Clear to auscultation and percussion bilaterally. HEART: Regular rate and rhythm. No gallops, murmurs, clicks, or rubs. ABDOMEN: Soft and lax. No tenderness. No hepatosplenomegaly. No masses. EXTREMITIES: No cyanosis, clubbing, or edema. LYMPHATICS: No peripheral lymphadenopathy. NEUROLOGICAL: Conscious, alert, and oriented times three. No focal motor or sensory deficits. PSYCHIATRIC: Mood and affect appear normal. SKIN: No skin rash, bruise, or purpuric eruption. DIAGNOSTIC DATA CBC showed white count 7.9, hemoglobin 13.7, hematocrit 40.9, platelets 309,000. Chem panel totally normal except blood sugar 134. Quantitative PCR for BCR-ABL for transcript p190 and p210 all came back not detected. ASSESSMENT 1. Chronic myelogenous leukemia in chronic phase, on Gleevec 400 mg started November 2009 with complete molecular remission achieved May 2010. Her current quantitative PCR for BCR-ABL transcript is negative and not detected. I am planning to continue the same treatment with Gleevec 400 mg daily, and I see her again in six months with CBC, chem panel, and quantitative PCR for BCR-ABL transcript. 2. Anxiety. I am planning to continue Xanax 0.5 mg t.i.d. p.r.n. PLAN 1. Continue Gleevec 400 mg daily. 2. Continue Xanax 0.5 mg t.i.d. p.r.n. for anxiety. 3. Patient to return in six months with CBC, chem panel, and quantitative PCR for BCR-ABL transcript. 4. Patient is to contact us for any new concern or complaints. MTDD
== END 2018-09-09 08:13 | disposition home or self-care (01) ==
LOC: ONC 15:30
PROVIDERS: ATTEND Internal Medicine Hematology
DX: C92.10 Chronic myeloid leukemia, BCR/ABL-positive, not having achieved remission (principal); R05 Cough; R06.02 Shortness of breath; R53.83 Other fatigue; F41.9 Anxiety disorder, unspecified
CPT/HCPCS: 36415; 81206; 81207; 82040; 82247; 82310; 82374; 82435; 82565; 82947; 84075; 84132; 84155; 84295; 84450; 84460; 84520; 85025; 99212

== ENCOUNTER → 2018-10-14 | Outpatient (CLI) | payer BC ==
--- NOTE | 2018-10-14 16:02 | RADIOLOGY IMAGING REPORT ---
FACILITY: [facility] PATIENT NAME: Tori Avina : 1965 MR: [id number] V: [id number] EXAM DATE: [id number] ORDERING PHYSICIAN: Betty FLETCHER TECHNOLOGIST: Location: [facility] [place] Patient: Tori Avina : 1965 Visit/Account:[id number] Date of Sevice: 10/14/2018 EXAMINATION: MRI Brain without and with intravenous contrast, detailed IACs MRA neck without and with intravenous contrast HISTORY: Pulsatile tinnitus. Chronic myelogenous leukemia. Headache. Dizziness. COMPARISON: Brain MRI dated 11/18/2002. TECHNIQUE: Multi-planar, multi-sequence brain MRI was performed before and after IV gadolinium. Thin section edel ging was performed in the axial and coronal planes centered on the IACs. Sagittal T1, axial T1 with fat saturation, axial 3-D [id number], axial martir fisp, and coronal post contrast 3-D MRA of the neck. 3-D reformats were created from the source data. Stenosis of the internal controls manager al carotid arteries are calculated using NASCET criteria. CONTRAST: 15 mL of IV MultiHance FINDINGS: BRAIN/IAC: IAC detailed study: Brain stem: Negative. Cerebellopontine angles: Negative. IACs / CN VII and VIII: Negative. Inner ear: Negative. Middle ear: Negative. Mastoids / petrous apices: Negative. Rest of brain: Confluent T2 hyperintensity in the left frontoparietal subcortical white matter with m ultiple internal linear hypointensities and mild surrounding FLAIR hyperintensity. No abnormal enhanc ement. No mass effect. No hydrocephalus. NECK MRA: Angiographic Findings: Aortic arch / great vessel origins: Negative. Right common carotid: Negative. Right internal carotid: Negative. Right external carotid: Negative. Left common carotid: Negative. Left internal carotid: Negative. Left external carotid: Negative. Vertebrals / basilar: Negative. Basile of Mariscal: Negative. Non-angiographic Findings: 3.8 x 3.2 x 2.0 cm subcutaneous lipoma in the right posterior neck at the level of C1-C2. IMPRESSION: 1. No findings to explain pulsatile tinnitus. 2. Prominent perivascular spaces in the left frontoparietal subcortical white matter with mild surrou nding FLAIR hyperintensity are not significantly changed compared with 11/18/2002. 3. 3.8 x 3.2 x 2.0 cm subcutaneous lipoma in the right posterior neck at the level of C1-C2. Report Dictated By: Daniel Snow MD at 10/14/2018 3:33 PM Report E-Signed By: Daniel Snow MD at 10/14/2018 3:58 PM [email or web address]
--- NOTE | 2018-10-14 16:02 | RADIOLOGY IMAGING REPORT ---
FACILITY: [facility] - [place] PATIENT NAME: Tori Avina : 1965 MR: [id number] V: [id number] EXAM DATE: [id number] ORDERING PHYSICIAN: Betty FLETCHER TECHNOLOGIST: Location: [facility] [place] Patient: Tori Avina : 1965 Visit/Account:[id number] Date of Sevice: 10/14/2018 EXAMINATION: MRI Brain without and with intravenous contrast, detailed IACs MRA neck without and with intravenous contrast HISTORY: Pulsatile tinnitus. Chronic myelogenous leukemia. Headache. Dizziness. COMPARISON: Brain MRI dated 11/18/2002. TECHNIQUE: Multi-planar, multi-sequence brain MRI was performed before and after IV gadolinium. Thin section edel ging was performed in the axial and coronal planes centered on the IACs. Sagittal T1, axial T1 with fat saturation, axial 3-D [id number], axial martir fisp, and coronal post contrast 3-D MRA of the neck. 3-D reformats were created from the source data. Stenosis of the internet network specialist al carotid arteries are calculated using NASCET criteria. CONTRAST: 15 mL of IV MultiHance FINDINGS: BRAIN/IAC: IAC detailed study: Brain stem: Negative. Cerebellopontine angles: Negative. IACs / CN VII and VIII: Negative. Inner ear: Negative. Middle ear: Negative. Mastoids / petrous apices: Negative. Rest of brain: Confluent T2 hyperintensity in the left frontoparietal subcortical white matter with m ultiple internal linear hypointensities and mild surrounding FLAIR hyperintensity. No abnormal enhanc ement. No mass effect. No hydrocephalus. NECK MRA: Angiographic Findings: Aortic arch / great vessel origins: Negative. Right common carotid: Negative. Right internal carotid: Negative. Right external carotid: Negative. Left common carotid: Negative. Left internal carotid: Negative. Left external carotid: Negative. Vertebrals / basilar: Negative. Export of Mariscal: Negative. Non-angiographic Findings: 3.8 x 3.2 x 2.0 cm subcutaneous lipoma in the right posterior neck at the level of C1-C2. IMPRESSION: 1. No findings to explain pulsatile tinnitus. 2. Prominent perivascular spaces in the left frontoparietal subcortical white matter with mild surrou nding FLAIR hyperintensity are not significantly changed compared with 11/18/2002. 3. 3.8 x 3.2 x 2.0 cm subcutaneous lipoma in the right posterior neck at the level of C1-C2. Report Dictated By: Daniel Snow MD at 10/14/2018 3:33 PM Report E-Signed By: Daniel Snow MD at 10/14/2018 3:58 PM [id number]
== END ==
LOC: MRI 00:59
PROVIDERS: ATTEND Otolaryngology
DX: D17.0 Benign lipomatous neoplasm of skin and subcutaneous tissue of head, face and neck (principal); R90.82 White matter disease, unspecified
CPT/HCPCS: 70549; 70553